=== PATIENT | female | born 1990 | race American Indian/Alaskan Native ===

== ENCOUNTER 2018-11-27 18:00 | Emergency (ER) | payer OTHER, BC ==
[2018-11-27] MEDS ORDERED: IBUPROFEN PO ONE (18:10)
--- NOTE | 2018-11-27 18:10 | Emergency Department Report ---
Chief Complaint: Back Pain/Injury Stated Complaint: BACK PAIN Time Seen by Provider: 11/27/18 18:08 - HPI History of Present Illness: FELL AT WORK 2 DAYS AGO WENT TO URGENT CARE LAST NIGHT NUMB IN BACK DID THIS AT WORK SHE CLIMBS AT WORK PMH NONE PSH CSEC HERNIA RX NONE LMP MID OCTOBER AMBULATORY MSE COMPLETED MSE screening note: Focused history and physical exam performed. Due to findings the following was ordered: ED Disposition for MSE Condition: Stable
[2018-11-27 21:51] LABS: HCG Qualitative,Urine Negative (Negative)
[2018-11-27 21:57] VITALS: BP 135/90
[2018-11-27 21:58] LABS: Bacteria,Urine 3+ /HPF (Negative); Bilirubin,Urine NEG (Negative); Blood,Urine LG (Negative); Color,Urine Yellow (Yellow); Mucus,Urine 3+ /HPF
--- NOTE | 2018-11-27 23:25 | Emergency Department Report ---
ED Back Pain/Injury HPI - General Chief Complaint: Back Pain/Injury Stated Complaint: BACK PAIN Time Seen by Provider: 11/27/18 18:08 Source: patient Limitations: No Limitations - History of Present Illness Initial Comments: 28-year-old female to emergency Department complaining 2 day history of upper back pain secondary to a slip and fall while she was at work. She was attempting to step onto a ladder and she missed the ladder causing herself to fall backwards, landing onto some boxes which she said was of relatively soft landing on while at work. She was initially evaluated at [facility] urgent care the day of the injury, but stated that she really didn't have much pain at that time, but at the 24 hours head results and to have more aches and pains and throbbing to her mid to upper back region Her to her visit to the emergency department kian RO Complaint: back pain -: Gradual Similar Symptoms Previously: No Place: work Severity: moderate Quality: dull, stabbing Consistency: constant Improves With: none Worsens With: none Context: while lifting, turning/twisting, bending Associated Symptoms: denies: chest pain, difficulty walking, diaphoresis, incontinence, constipation, abdominal pain, nausea/vomiting, rash, seizure, shortness of breath - Related Data Previous Rx's Medication Instructions Recorded Last Taken Type Acetaminophen/Codeine [Tylenol #3] 1 tab PO Q6H PRN #20 tab 02/12/16 Unknown Rx Cyclobenzaprine [Flexeril] 10 mg PO TID PRN #30 tablet 02/12/16 Unknown Rx Ibuprofen [Motrin] 600 mg PO Q8H PRN #50 tablet 02/12/16 Unknown Rx Ketorolac [Toradol] 10 mg PO Q6H PRN #15 tablet 11/27/18 Unknown Rx Methocarbamol [Robaxin TAB] 750 mg PO Q8H PRN #14 tablet 11/27/18 Unknown Rx Allergies Allergy/AdvReac Type Severity Reaction Status Date / Time No Known Allergies Allergy Verified 11/27/18 18:08 ED Review of Systems ROS: Stated complaint: BACK PAIN Other details as noted in HPI Constitutional: denies: chills, fever Eyes: denies: eye pain, eye discharge, vision change ENT: denies: ear pain, throat pain Respiratory: denies: cough, shortness of breath, wheezing Cardiovascular: denies: chest pain, palpitations Endocrine: no symptoms reported Gastrointestinal: denies: abdominal pain, nausea, diarrhea Genitourinary: denies: urgency, dysuria, discharge Musculoskeletal: back pain. denies: joint swelling, arthralgia Skin: denies: rash, lesions Neurological: denies: headache, weakness, paresthesias Psychiatric: denies: anxiety, depression Hematological/Lymphatic: denies: easy bleeding, easy bruising ED Past Medical Hx - Surgical History Additional Surgical History: , hernia - Social History Smoking Status: Never Smoker Substance Use Type: None - Medications Home Medications: Home Medications Medication Instructions Recorded Confirmed Last Taken Type Acetaminophen/Codeine [Tylenol #3] 1 tab PO Q6H PRN #20 tab 02/12/16 Unknown Rx Cyclobenzaprine [Flexeril] 10 mg PO TID PRN #30 tablet 02/12/16 Unknown Rx Ibuprofen [Motrin] 600 mg PO Q8H PRN #50 tablet 02/12/16 Unknown Rx Ketorolac [Toradol] 10 mg PO Q6H PRN #15 tablet 11/27/18 Unknown Rx Methocarbamol [Robaxin TAB] 750 mg PO Q8H PRN #14 tablet 11/27/18 Unknown Rx ED Physical Exam - General Limitations: No Limitations General appearance: alert, in no apparent distress - Head Head exam: Present: atraumatic, normocephalic - Eye Eye exam: Present: normal appearance, PERRL, EOMI Pupils: Present: normal accommodation - ENT ENT exam: Present: normal exam, normal orophraynx, mucous membranes moist, TM's normal bilaterally - Neck Neck exam: Present: normal inspection, full ROM - Respiratory Respiratory exam: Present: normal lung sounds bilaterally. Absent: respiratory distress - Cardiovascular Cardiovascular Exam: Present: regular rate, normal rhythm. Absent: systolic murmur, diastolic murmur, rubs, gallop - GI/Abdominal GI/Abdominal exam: Present: soft, normal bowel sounds - Extremities Exam Extremities exam: Present: normal inspection, normal capillary refill - Back Exam Back exam: Present: normal inspection, full ROM, muscle spasm, paraspinal tenderness (spasm to the right paraspinous muscle with palpation.). Absent: CVA tenderness (R), CVA tenderness (L) - Neurological Exam Neurological exam: Present: alert, oriented X3, CN II-XII intact, normal gait - Psychiatric Psychiatric exam: Present: normal affect, normal mood - Skin Skin exam: Present: warm, dry, intact, normal color. Absent: rash ED Course Vital Signs 11/27/18 18:05 Temperature 98.2 F Pulse Rate 86 Respiratory 16 Rate Blood Pressure 135/90 O2 Sat by Pulse 100 Oximetry Critical care attestation.: If time is entered above; I have spent that time in minutes in the direct care of this critically ill patient, excluding procedure time. ED Disposition Clinical Impression: Back pain, Fall, Spasm of paraspinal muscle Disposition: DC-01 TO HOME OR SELFCARE Is pt being admited?: No Does the pt Need Aspirin: No Condition: Stable Instructions: Muscle Spasm (ED), Back Pain (ED) Referrals: [facility] JHONATHAN MANLEY MD [Primary Care Provider] - 3-5 Days [facility] [Provider Group] - 3-5 Days
--- NOTE | 2018-11-27 23:36 | XRay Report ---
PROCEDURE: LUMBAR SPINE, 2 VIEWS TECHNIQUE: Lumbar spine radiographs, frontal and lateral views. CPT 60303 HISTORY: Back pain COMPARISONS: None . FINDINGS: Alignment: Normal . Vertebral body heights/Disk spaces: Normal . Fracture(s): None . Facets: Normal . Bone mineralization: Normal . IMPRESSION: Normal Examination . This document is electronically signed by Richard Vallejo MD., November 27 2018 11:34:25 PM ET
== END 2018-11-27 23:45 | disposition home or self-care (01) ==
LOC: ED 18:00
DX: M62.830 Muscle spasm of back (principal); W11.XXXA Fall on and from ladder, initial encounter; Y93.89 Activity, other specified; Y92.89 Other specified places as the place of occurrence of the external cause; Y99.8 Other external cause status
CPT/HCPCS: 72100; 81001; 81025; 99283